=== PATIENT | male | born 1955 | race African-American/Black ===

== ENCOUNTER 2021-11-13 16:19 | Emergency (ER) | payer OTHER, MEDICAID ==
[~2021-11-13] VITALS: Ht 188 cm; Wt 85.7 kg
[2021-11-13 16:31] VITALS: BP_SYST 153
[2021-11-13 17:05] LABS: BASOPHILS # (AUTO) 0.1 K/uL (0.0-0.2); BASOPHILS % (AUTO) 2.1 % (0.0-2.0); EOSINOPHILS # (AUTO) 0.3 K/uL (0.0-0.4); EOSINOPHILS % (AUTO) 9.4 % (0.0-4.0); HEMATOCRIT 27.8 % (36-54); LYMPHOCYTES # (AUTO) 0.6 K/uL (1.0-5.5); LYMPHOCYTES % (AUTO) 18.7 % (20.5-51.5); MEAN CORPUSCULAR HEMOGLOBIN 27 pg (27-31); MEAN CORPUSCULAR HGB CONC 33 % (32-36); MEAN CORPUSCULAR VOLUME 84 fL (79.0-98.0); MONOCYTES # (AUTO) 0.2 K/uL (0.0-1.0); MONOCYTES % (AUTO) 7.4 % (1.7-9.3); NEUTROPHILS % (AUTO) 62.4 % (40.0-70.0); PLATELET COUNT (AUTO) 209 K/uL (130-430); RED BLOOD CELL COUNT(AUTO) 3.31 MIL/uL (4.2-6.2); WHITE BLOOD COUNT (AUTO) 3.1 K/uL (4.8-10.8)
[2021-11-13 17:09] LABS: CALCIUM 7.8 mg/dL (8.4-11.0); POTASSIUM 4.5 mmol/L (3.5-5.1)
[2021-11-13 17:13] LABS: CREATININE 15.9 mg/dL (0.55-1.30)
[2021-11-13 17:14] LABS: ALBUMIN 3.2 g/dL (3.4-4.8); TOTAL BILIRUBIN 0.5 mg/dL (0.0-1.0)
[2021-11-13] MEDS ORDERED: CLON0.1T PO (18:04)
[2021-11-13] MEDS ORDERED: CALC667T6 PO (18:04)
[2021-11-13] MEDS ORDERED: FOLI0.8T42 PO (18:05)
[2021-11-13 21:15] VITALS: BP_SYST 132
== END 2021-11-13 21:15 | disposition home or self-care (01) ==
LOC: SED 16:19
DX: R06.02 Shortness of breath (principal); N28.9 Disorder of kidney and ureter, unspecified
CPT/HCPCS: 36415; 71045; 78579; 78580; 80053; 82550; 83880; 85025; 93005; 99284; A9539; A9540